=== PATIENT | female | born 1940 | race Caucasian/White ===

== ENCOUNTER 2023-09-22 17:58 | Emergency (ER) | payer MEDICARE, BC ==
[2023-09-22] MEDS: hydrALAZINE 20 MG/ML SDV IM ONE (18:26)
[2023-09-22] MEDS: Oxymetazoline 0.05% Nasal Spray 30 ML Bottle NAS ONE (18:52)
== END 2023-09-22 19:13 | disposition home or self-care (01) ==
LOC: DL.ED 17:58
DX: R04.0 Epistaxis (principal); I10 Essential (primary) hypertension; Z88.2 Allergy status to sulfonamides
CPT/HCPCS: 96372; 99283; A9270-GY; J0360

== ENCOUNTER 2023-09-25 02:07 | Emergency (ER) | payer MEDICARE, BC ==
[2023-09-25] MEDS: Oxymetazoline 0.05% Nasal Spray 30 ML Bottle NAS ONE (02:32)
== END 2023-09-25 04:05 | disposition home or self-care (01) ==
LOC: DL.ED 02:07
DX: R04.0 Epistaxis (principal); I10 Essential (primary) hypertension; Z88.2 Allergy status to sulfonamides
CPT/HCPCS: 99283; A9270-GY